=== PATIENT | male | born 1950 | race Caucasian/White ===

== ENCOUNTER 2019-03-25 10:02 | Emergency (ER) | payer OTHER ==
[2019-03-25 10:46] LABS: Absolute Lymphocytes (CBC) 0.7 K/uL (0.7-4.9); Hematocrit 38.6 % (39.6-49.0); Lymphocytes % 11.2 % (15.3-44.8); MPV 8.8 fL (7.6-11.3); RBC Red Blood Cell Count 4.62 M/uL (4.33-5.43)
--- NOTE | 2019-03-25 10:53 | RAD REPORT ---
EXAM DESCRIPTION: RAD - Abdomen 1 View (KUB) - 03/25/2019 10:48 am CLINICAL HISTORY: Abd pain;Constipation Pain COMPARISON: No comparisons FINDINGS: The bowel gas pattern is non-obstructive. No evidence of free air or pneumatosis. No suspi cious calcifications. No significant bony findings. Prostatectomy clips. IMPRESSION: Negative examination.
[2019-03-25 10:59] LABS: Potassium 4.3 mmol/L (3.5-5.1)
--- NOTE | 2019-03-25 11:21 | EDPHYS ---
Physician Documentation [facility] Name: Karl Nichols Age: 68 yrs Sex: Male : 1950 Arrival Date: 03/25/2019 Time: 10:08 Bed 18 Private MD: None, None ED Physician Peewee Alvarado HPI: 03/25 10:38 This 68 yrs old Male presents to ER via Ambulatory with complaints of jr8 Constipation. 10:38 Patient presents to ED with complaints of constipation for 2 weeks. Denies abdominal jr8 pain, nausea, or vomiting. History of constipation in past. PCP told him to come to ED if he were to have another episode of constipation . Onset: The symptoms/episode began/occurred gradually, 2 week(s) ago. Severity of symptoms: At their worst the symptoms were mild in the emergency department the symptoms are unchanged. The patient has experienced similar episodes in the past, a few times. The patient has not recently seen a physician. Historical: - Allergies: 10:16 No Known Allergies; hb - Home Meds: 10:16 Lisinopril Oral [Active]; Metoprolol Tartrate Oral [Active]; hb - PSHx: 10:16 Prostate CA; Back; hb - Immunization history:: Adult Immunizations up to date. - Social history:: Smoking status: Patient/guardian denies using tobacco. - Ebola Screening: : No symptoms or risks identified at this time. ROS: 10:38 Eyes: Negative for injury, pain, redness, and discharge, ENT: Negative for injury, jr8 pain, and discharge, Neck: Negative for injury, pain, and swelling, Cardiovascular: Negative for chest pain, palpitations, and edema, Respiratory: Negative for shortness of breath, cough, wheezing, and pleuritic chest pain, Back: Negative for injury and pain, MS/Extremity: Negative for injury and deformity, Skin: Negative for injury, rash, and discoloration, Neuro: Negative for headache, weakness, numbness, tingling, and seizure. 10:38 Abdomen/GI: Positive for constipation, Negative for abdominal pain, nausea, vomiting, and diarrhea, abdominal distension, anorexia, dysphagia, hematemesis, black/tarry stool, rectal pain, rectal bleeding, bowel incontinence, flatulence. Exam: 10:38 Eyes: Pupils equal round and reactive to light, extra-ocular motions intact. Lids and jr8 lashes normal. Conjunctiva and sclera are non-icteric and not injected. Cornea within normal limits. Periorbital areas with no swelling, redness, or edema. ENT: Nares patent. No nasal discharge, no septal abnormalities noted. Tympanic membranes are normal and external auditory canals are clear. Oropharynx with no redness, swelling, or masses, exudates, or evidence of obstruction, uvula midline. Mucous membranes moist. Neck: Trachea midline, no thyromegaly or masses palpated, and no cervical lymphadenopathy. Supple, full range of motion without nuchal rigidity, or vertebral point tenderness. No Meningismus. Cardiovascular: Regular rate and rhythm with a normal S1 and S2. No gallops, murmurs, or rubs. Normal PMI, no JVD. No pulse deficits. Respiratory: Lungs have equal breath sounds bilaterally, clear to auscultation and percussion. No rales, rhonchi or wheezes noted. No increased work of breathing, no retractions or nasal flaring. Abdomen/GI: Soft, non-tender, with normal bowel sounds. No distension or tympany. No guarding or rebound. No evidence of tenderness throughout. Back: No spinal tenderness. No costovertebral tenderness. Full range of motion. Skin: Warm, dry with normal turgor. Normal color with no rashes, no lesions, and no evidence of cellulitis. MS/ Extremity: Pulses equal, no cyanosis. Neurovascular intact. Full, normal range of motion. Neuro: Awake and alert, GCS 15, oriented to person, place, time, and situation. Cranial nerves II-XII grossly intact. Motor strength 5/5 in all extremities. Sensory grossly intact. Cerebellar exam normal. Normal gait. Vital Signs: 10:14 BP 176 / 92; Pulse 71; Resp 16; Temp 98; Pulse Ox 99% ; Weight 104.33 kg; Height 6 ft. hb (182.88 cm); Pain 0/10; 11:19 BP 146 / 81; Pulse 53; Resp 17; Pulse Ox 99% on R/A; tw2 10:14 Body Mass Index 31.19 (104.33 kg, 182.88 cm) hb MDM: 10:10 Patient medically screened. [facility] 11:06 Differential Diagnosis sepsis, SBO, mass, obstruction, constipation. Data reviewed: jr8 vital signs, nurses notes, lab test result(s), radiologic studies, plain films, and as a result, I will discharge patient. Data interpreted: Pulse oximetry: on room air is 98 %. Interpretation: normal. Counseling: I had a detailed discussion with the patient and/or guardian regarding: the historical points, exam findings, and any diagnostic results supporting the discharge/admit diagnosis, lab results, radiology results, the need for outpatient follow up, a family practitioner, a gamma ray operator. ED course: Labs normal, no anemia. KUB reveals nonobstructive bowel gas pattern. No evidence of obstruction or mass. Physical exam of abdomen reveals no tenderness, rigidity, or mass. Benign in appearance. Will discharge home with lactulose for constipation. Patient instructed to follow up closely with PCP and with his GI. Patient has established care with GI and is scheduled to have endoscopy/colonoscopy in 2 weeks. Strict return precautions given, patient to return to ER for worsening or unrelieved constipation, new abdominal pain or onset of vomiting. Patient verbalizes understanding.. 03/25 10:25 Order name: Basic Metabolic Panel; Complete Time: 11:07 [facility] 03/25 10:25 Order name: CBC with Diff; Complete Time: 10:54 [facility] 03/25 10:25 Order name: IV Saline Lock; Complete Time: 11:03 [facility] 03/25 10:25 Order name: Labs collected and sent; Complete Time: 11:03 [facility] 03/25 10:25 Order name: XRAY Abdomen 1 View (KUB); Complete Time: 10:56 [facility] Administered Medications: No medications were administered Disposition: 12:58 Co-signature as Attending Physician, Peewee Alvarado MD. rn Disposition: 03/25/19 11:21 Discharged to Home. Impression: Constipation. - Condition is Stable. - Discharge Instructions: Constipation, Adult. - Prescriptions for Lactulose 10 gram/15 mL Oral Solution - take 30 milliliters by ORAL route 2 times per day for 2 days; 300 milliliter. - Medication Reconciliation Form, Thank You Letter, Antibiotic Education, Prescription Opioid Use form. - Follow up: Private Physician; When: 2 - 3 days; Reason: Further diagnostic work-up, Recheck today's complaints, Continuance of care, Re-evaluation by your physician. - Problem is an ongoing problem. - Symptoms have improved. Signatures: Dispatcher [employer] EDMS Peewee Alvarado MD MD rn Roszak, Josh, PA PA jr8 Ghislaine Cardenas RN RN Xenia Maher RN RN tw2 Corrections: (The following items were deleted from the chart) 11:20 11:06 ED course: Labs normal, no anemia. KUB reveals nonobstructive bowel gas pattern. jr8 No evidence of obstruction or mass. Physical exam of abdomen reveals no tenderness, rigidity, or mass. Benign in appearance. Will discharge home with lactulose for constipation. Patient instructed to follow up closely with PCP and with GI. Strict return precautions given, patient to return to ER for worsening or unrelieved constipation, new abdominal pain or onset of vomiting. Patient verbalizes understanding.. jr8 11:31 11:21 03/25/2019 11:21 Discharged to Home. Impression: Constipation. Condition is tw2 Stable. Forms are Medication Reconciliation Form, Thank You Letter, Antibiotic Education, Prescription Opioid Use. Follow up: Private Physician; When: 2 - 3 days; Reason: Further diagnostic work-up, Recheck today's complaints, Continuance of care, Re-evaluation by your physician. Problem is an ongoing problem. Symptoms have improved. jr8
--- NOTE | 2019-03-25 11:21 | ER ---
Nurse's Notes [facility] Name: Karl Nichols Age: 68 yrs Sex: Male : 1950 Arrival Date: 03/25/2019 Time: 10:08 Bed 18 Private MD: None, None Diagnosis: Constipation Presentation: 03/25 10:17 Presenting complaint: Constipation x 2 weeks. Transition of care: patient was not hb received from another setting of care. Onset of symptoms is unknown. Risk Assessment: Do you want to hurt yourself or someone else? Patient reports no desire to harm self or others. Initial Sepsis Screen: Does the patient meet any 2 criteria? No. Patient's initial sepsis screen is negative. Does the patient have a suspected source of infection? No. Patient's initial sepsis screen is negative. Care prior to arrival: None. 10:17 Method Of Arrival: Ambulatory hb 10:17 Acuity: STEPHEN 3 hb Historical: - Allergies: 10:16 No Known Allergies; hb - Home Meds: 10:16 Lisinopril Oral [Active]; Metoprolol Tartrate Oral [Active]; hb - PSHx: 10:16 Prostate CA; Back; hb - Immunization history:: Adult Immunizations up to date. - Social history:: Smoking status: Patient/guardian denies using tobacco. - Ebola Screening: : No symptoms or risks identified at this time. Screenin:17 Abuse screen: Denies threats or abuse. Nutritional screening: No deficits noted. tw2 Tuberculosis screening: No symptoms or risk factors identified. Fall Risk Secondary diagnosis (15 points) impaired mobility. Assessment: 10:12 General: Appears in no apparent distress. well groomed, Behavior is calm, cooperative, tw2 appropriate for age. Pain: Denies pain. Neuro: Level of Consciousness is awake, alert, obeys commands, Oriented to person, place, time, situation. Cardiovascular: Heart tones S1 S2 Patient's skin is warm and dry. Respiratory: Airway is patent Respiratory effort is even, unlabored, Respiratory pattern is regular, symmetrical, Breath sounds are clear bilaterally. GI: Bowel sounds present X 4 quads. Abd is soft and non tender X 4 quads. Reports constipation. : No signs and/or symptoms were reported regarding the genitourinary system. EENT: No signs and/or symptoms were reported regarding the EENT system. Derm: No signs and/or symptoms reported regarding the dermatologic system. Musculoskeletal: Range of motion: intact in all extremities. 11:19 Reassessment: Patient appears in no apparent distress at this time. No changes from tw2 previously documented assessment. Patient and/or family updated on plan of care and expected duration. Pain level reassessed. Patient is alert, oriented x 3, equal unlabored respirations, skin warm/dry/pink. 11:30 Reassessment: Patient appears in no apparent distress at this time. No changes from tw2 previously documented assessment. Patient and/or family updated on plan of care and expected duration. Pain level reassessed. Patient is alert, oriented x 3, equal unlabored respirations, skin warm/dry/pink. Vital Signs: 10:14 BP 176 / 92; Pulse 71; Resp 16; Temp 98; Pulse Ox 99% ; Weight 104.33 kg; Height 6 ft. hb (182.88 cm); Pain 0/10; 11:19 BP 146 / 81; Pulse 53; Resp 17; Pulse Ox 99% on R/A; tw2 10:14 Body Mass Index 31.19 (104.33 kg, 182.88 cm) hb ED Course: 10:08 Patient arrived in ED. mr 10:08 None, None is Private Physician. mr 10:10 Cayetano Hinds PA is PHCP. jr8 10:10 Peewee Alvarado MD is Attending Physician. jr8 10:12 Bed in low position. Call light in reach. Adult w/ patient. tw2 10:15 Arm band placed on. hb 10:17 Xenia Brizuela, RN is Primary Nurse. tw2 10:18 Triage completed. hb 10:35 Inserted saline lock: 20 gauge in right antecubital area, using aseptic technique. tw2 ,using aseptic technique. per Rogers Snyder Blood collected. 10:48 XRAY Abdomen 1 View (KUB) In Process Unspecified. EDMS 11:30 No provider procedures requiring assistance completed. IV discontinued, intact, tw2 bleeding controlled, No redness/swelling at site. Pressure dressing applied. Administered Medications: No medications were administered Outcome: 11:21 Discharge ordered by . jr8 11:30 Discharged to home ambulatory, with significant other. tw2 11:30 Condition: stable 11:30 Discharge instructions given to patient, significant other, Instructed on discharge instructions, follow up and referral plans. medication usage, Demonstrated understanding of instructions, follow-up care, medications, Prescriptions given X 1. 11:31 Patient left the ED. tw2 Signatures: Dispatcher [employer] Divine Olivier, MAE Monteiro jr8 Ghislaine Cardenas RN RN Xenia Maher RN RN tw2 Corrections: (The following items were deleted from the chart) 11:20 10:35 Inserted saline lock: 20 gauge in right antecubital area, using aseptic tw2 technique. Blood collected. tw2
== END 2019-03-25 11:31 | disposition home or self-care (01) ==
LOC: ER 10:02
DX: K59.00 Constipation, unspecified (principal); C61 Malignant neoplasm of prostate
CPT/HCPCS: 36415; 74018; 80048; 85025; 99284